=== PATIENT | female | born 1985 | race Caucasian/White ===

== ENCOUNTER 2022-05-06 09:29 | Outpatient (CLI) | payer OTHER, SELFPAY ==
--- NOTE | 2022-05-06 09:45 | CRLHL7_ITS ---
For Patients: As a result of the Century Cures Act, medical imaging exams and procedure reports are released immediately into your electronic medical record. You may view this report before your referring provider. If you have questions, please contact your health care provider. INDICATION: PELVIC PAIN, MENORRHAGIA COMPARISON: none TECHNIQUE: 2D cintron scale and color Doppler images were acquired of the pelvis using a transabdominal and transvaginal approach. FINDINGS: Sonographic images demonstrate a normal size and smooth outer contour of the uterus. Uterus measures 8.9 cm in length by 4.5 cm in AP diameter by 5.5 cm in transverse dimension. The myometrium has a normal uniform echotexture. The endometrial lining measures 15 mm in composite thickness. The right ovary measures 5.0 x 3.3 x 2.8 cm in size and the left ovary measures 3.5 x 1.5 x 2.5 cm. The ovaries demonstrate normal arterial and venous blood flow on color Doppler analysis. Complex right ovarian cyst with internal reticular echoes measuring 2.9 x 2.3 x 2.7 cm. There are no suspicious fluid collections within the cul-de-sac. IMPRESSION: Endometrial thickness 15 millimeters. Hemorrhagic right ovarian cyst measuring 2.9 cm. Dictated by Valeriy Mccurdy MD @ 05/06/2022 12:24:43 PM (Electronically Signed)
== END 2022-05-06 09:30 | disposition home or self-care (01) ==
LOC: US 09:29
PROVIDERS: Visit Provider Obstetrics & Gynecology
DX: N92.0 Excessive and frequent menstruation with regular cycle (principal); R93.89 Abnormal findings on diagnostic imaging of other specified body structures; N83.201 Unspecified ovarian cyst, right side; R10.2 Pelvic and perineal pain
CPT/HCPCS: 36415; 76830; 76856; 84443; 93976